=== PATIENT | female | born 1935 | race Caucasian/White ===

== ENCOUNTER 2017-01-02 08:35 | Inpatient (IN) | payer OTHER, MEDICARE ==
[~2017-01-02] VITALS: Ht 165.1 cm; Wt 79.8 kg
[2017-01-02] VITALS (7 sets, daily range): BP systolic 177–211; BP diastolic 62–86; PULSE 65–84; RESP 16–28; TEMP 98.2–98.8; O2SAT 87–93
[~2017-01-02 08:35] MED LIST: 1-ME1LIQ PO; ALLO100T PO; ATOR20TA PO; GLIP5 PO; LANTINJ SQ; LOSA100T3 PO; MAGN400 PO; METO50TA PO; VITD400 PO
[2017-01-02] MEDS ORDERED: GLIP5TAB8 PO (08:54)
[2017-01-02] MEDS ORDERED: LANTUS2P SQ ×2 (08:55)
[2017-01-02] MEDS ORDERED: ATOR20TA15 PO (08:57)
[2017-01-02] MEDS ORDERED: METO100T9 PO (08:57)
[2017-01-02] MEDS ORDERED: AMLO10TA2 PO (08:57)
[2017-01-02] MEDS ORDERED: CLOP75TA PO (09:01)
[2017-01-02] MEDS ORDERED: METH500T PO (09:01)
[2017-01-02] MEDS ORDERED: ESSE250T (09:01)
[2017-01-02] MEDS ORDERED: ALLO100T PO (09:01)
[2017-01-02] MEDS ORDERED: LOSA100T3 PO (09:01)
[2017-01-02] MEDS ORDERED: SODIUM CHLORIDE 0.9% FLUSH 10 ML FLUSH IVF PRN (09:15)
[2017-01-02] MEDS ORDERED: FUROSEMIDE 40 MG/4 ML VIAL IVP ONE (09:15)
--- NOTE | 2017-01-02 09:34 | PD ---
HPI Chief Complaint: Respiratory Distress Time Seen by Provider: 08:59 Travel History International Travel<30 days: No Contact w/Intl Traveler<30days: No Traveled to known affect area: No History of Present Illness HPI The patient is a 81-year-old female who presents to the emergency department for shortness of breath at 3 days' duration. The patient states her symptoms started 3 days ago with mild shortness of breath that was worse with exertion. The patient now has shortness of breath with lying supine, worse at night, slightly alleviated by sleeping on several pillows. The patient also continues to have mild shortness of breath with exertion and a mild lower extremity edema. The patient denies any chest pain, nausea, vomiting, or diaphoresis. The patient does have a history of hypertension and peripheral vascular disease, but denies any known history of CAD or CHF. The patient denies any recent hospitalizations, surgeries except for Mohs surgery, recent prolonged travel, and denies any history of previous pulmonary embolism/DVT. The patient denies any history of COPD/asthma. The patient denies any history of tobacco use. The patient's primary physician is Dr. Duane Mccain. Symptoms are moderate, worse with exertion and lying supine, mildly alleviated at rest and sitting upright. PFSH Past Medical History Hx Anticoagulant Therapy: No Arthritis: Yes Cancer: Yes (SKIN) Cardiovascular Problems: Yes (HTN) High Cholesterol: Yes Chemotherapy: No Cerebrovascular Accident: No Diabetes: Yes (TYPE 2) Patient Takes Glucophage: Yes (GLIPIZIDE ) Diminished Hearing: Yes Endocrine: Yes Glaucoma: Yes Hepatitis: No Hiatal Hernia: No Hypertension: Yes Immune Disorder: No Neurologic: No Psychiatric: No Reproductive: No Respiratory: No Thyroid Disease: No : 4 Para: 4 Past Surgical History Abdominal Surgery: Yes (ULCER REPAIR) Appendectomy: Yes Cardiac Surgery: No Ear Surgery: No Endocrine Surgery: No Eye Surgery: No Genitourinary Surgery: No Gynecologic Surgery: Yes (HYSTERECTOMY) Hysterectomy: Yes Oral Surgery: No Pacemaker: No Thoracic Surgery: No Other Surgery: Yes (STENTS X 2 TO RIGHT LEG) Social History Alcohol Use: Yes (OCCASSIONALLY) Tobacco Use: No Substance Use: No Allergies-Medications (Allergen,Severity, Reaction): Coded Allergies: No Known Allergies (Verified , 01/02/17) Reported Meds & Prescriptions Reported Meds & Active Scripts Active Reported Clopidogrel (Clopidogrel Bisulfate) 75 Mg Tab 75 Mg PO DAILY Magnesium 250 Mg Tab Losartan-Hydrochlorothiazide 100-12.5 Mg Tab 1 Tab PO DAILY Allopurinol 100 Mg Tab 100 Mg PO DAILY Methyldopa 500 Mg Tab 500 Mg PO DAILY Metoprolol Succinate ER 24 HR (Metoprolol Succinate) 100 Mg Tab 100 Mg PO DAILY Amlodipine (Amlodipine Besylate) 10 Mg Tab 10 Mg PO DAILY Atorvastatin (Atorvastatin Calcium) 20 Mg Tab 20 Mg PO HS Lantus Inj (Insulin Glargine) 1,000 Unit/10 Ml Vial 12 Units SQ HS Glipizide 5 Mg Tab 5 Mg PO DAILY Take 30 minutes before a meal Review of Systems Except as stated in HPI: all other systems reviewed are Neg General / Constitutional: No: Fever Cardiovascular: Positive: Dyspnea on exertion, No: Chest Pain or Discomfort, Diaphoresis Respiratory: Positive: Shortness of Breath, No: Cough Gastrointestinal: No: Nausea, Vomiting, Abdominal Pain Musculoskeletal: Positive: Edema Physical Exam Narrative GENERAL: Awake, alert, pleasant 81-year-old female who appears her stated age and is in no acute respiratory distress. SKIN: Focused skin assessment warm/dry. HEAD: Atraumatic. Normocephalic. EYES: Pupils equal and round. No scleral icterus. No injection or drainage. ENT: No nasal bleeding or discharge. Mucous membranes pink and moist. NECK: Trachea midline. No JVD. CARDIOVASCULAR: Regular rate and rhythm. No murmur appreciated. RESPIRATORY: No accessory muscle use. Crackles in the bases bilaterally. GASTROINTESTINAL: Abdomen soft, non-tender, nondistended. No rebound tenderness. MUSCULOSKELETAL: No obvious deformities. No clubbing. No cyanosis. Mild lower extremity pitting edema. NEUROLOGICAL: Awake and alert. No obvious cranial nerve deficits. Motor grossly within normal limits. Normal speech. Nonfocal. PSYCHIATRIC: Appropriate mood and affect; insight and judgment normal. Data Data Last Documented VS Vital Signs Date Time Temp Pulse Resp B/P Pulse Ox O2 Delivery O2 Flow Rate FiO2 01/02/17 09:18 93 Room Air 01/02/17 08:47 78 18 01/02/17 08:44 98.8 197/82 Orders Complete Blood Count With Diff (01/02/17 09:06) Comprehensive Metabolic Panel (01/02/17 09:06) B-Type Natriuretic Peptide (01/02/17 09:06) Act Partial Throm Time (Ptt) (01/02/17 09:06) Prothrombin Time / Inr (Pt) (01/02/17 09:06) Magnesium (Mg) (01/02/17 09:06) Ckmb (Isoenzyme) Profile (01/02/17 09:06) Troponin I (01/02/17 09:06) Iv Access Insert/Monitor (01/02/17 09:06) Electrocardiogram (01/02/17 09:06) Ecg Monitoring (01/02/17 09:06) Oximetry (01/02/17 09:06) Oxygen Administration (01/02/17 09:06) Chest, Single Ap (01/02/17 09:06) Sodium Chloride 0.9% Flush (Ns Flush) (01/02/17 09:15) Furosemide Inj (Lasix Inj) (01/02/17 09:15) Admit Order (Ed Use Only) (01/02/17 10:36) Labs Laboratory Tests Test 01/02/17 09:20 White Blood Count 12.9 TH/MM3 Red Blood Count 3.65 MIL/MM3 Hemoglobin 10.4 GM/DL Hematocrit 30.6 % Mean Corpuscular Volume 83.8 FL Mean Corpuscular Hemoglobin 28.5 PG Mean Corpuscular Hemoglobin 34.0 % Concent Red Cell Distribution Width 13.9 % Platelet Count 206 TH/MM3 Mean Platelet Volume 9.5 FL Neutrophils (%) (Auto) 85.6 % Lymphocytes (%) (Auto) 8.0 % Monocytes (%) (Auto) 5.8 % Eosinophils (%) (Auto) 0.0 % Basophils (%) (Auto) 0.6 % Neutrophils # (Auto) 11.0 TH/MM3 Lymphocytes # (Auto) 1.0 TH/MM3 Monocytes # (Auto) 0.7 TH/MM3 Eosinophils # (Auto) 0.0 TH/MM3 Basophils # (Auto) 0.1 TH/MM3 CBC Comment DIFF FINAL Differential Comment Prothrombin Time 10.2 SEC Prothromb Time International 0.9 RATIO Ratio Activated Partial 27.8 SEC Thromboplast Time Sodium Level 141 MEQ/L Potassium Level 4.2 MEQ/L Chloride Level 109 MEQ/L Carbon Dioxide Level 23.1 MEQ/L Anion Gap 9 MEQ/L Blood Urea Nitrogen 41 MG/DL Creatinine 2.31 MG/DL Estimat Glomerular Filtration 20 ML/MIN Rate Random Glucose 191 MG/DL Calcium Level 8.7 MG/DL Magnesium Level 2.1 MG/DL Total Bilirubin 0.6 MG/DL Aspartate Amino Transf 11 U/L (AST/SGOT) Alanine Aminotransferase 17 U/L (ALT/SGPT) Alkaline Phosphatase 148 U/L Total Creatine Kinase 53 U/L Troponin I 0.02 NG/ML B-Type Natriuretic Peptide 676 PG/ML Total Protein 6.9 GM/DL Albumin 3.1 GM/DL [facility] Medical Decision Making Medical Screen Exam Complete: Yes Emergency Medical Condition: Yes Medical Record Reviewed: Yes Interpretation(s) EKG reveals normal sinus rhythm with a rate of 78. No ischemic changes or ectopy noted. Laboratory Tests Test 01/02/17 09:20 White Blood Count 12.9 TH/MM3 Red Blood Count 3.65 MIL/MM3 Hemoglobin 10.4 GM/DL Hematocrit 30.6 % Mean Corpuscular Volume 83.8 FL Mean Corpuscular Hemoglobin 28.5 PG Mean Corpuscular Hemoglobin 34.0 % Concent Red Cell Distribution Width 13.9 % Platelet Count 206 TH/MM3 Mean Platelet Volume 9.5 FL Neutrophils (%) (Auto) 85.6 % Lymphocytes (%) (Auto) 8.0 % Monocytes (%) (Auto) 5.8 % Eosinophils (%) (Auto) 0.0 % Basophils (%) (Auto) 0.6 % Neutrophils # (Auto) 11.0 TH/MM3 Lymphocytes # (Auto) 1.0 TH/MM3 Monocytes # (Auto) 0.7 TH/MM3 Eosinophils # (Auto) 0.0 TH/MM3 Basophils # (Auto) 0.1 TH/MM3 CBC Comment DIFF FINAL Differential Comment Prothrombin Time 10.2 SEC Prothromb Time International 0.9 RATIO Ratio Activated Partial 27.8 SEC Thromboplast Time Sodium Level 141 MEQ/L Potassium Level 4.2 MEQ/L Chloride Level 109 MEQ/L Carbon Dioxide Level 23.1 MEQ/L Anion Gap 9 MEQ/L Blood Urea Nitrogen 41 MG/DL Creatinine 2.31 MG/DL Estimat Glomerular Filtration 20 ML/MIN Rate Random Glucose 191 MG/DL Calcium Level 8.7 MG/DL Magnesium Level 2.1 MG/DL Total Bilirubin 0.6 MG/DL Aspartate Amino Transf 11 U/L (AST/SGOT) Alanine Aminotransferase 17 U/L (ALT/SGPT) Alkaline Phosphatase 148 U/L Total Creatine Kinase 53 U/L Troponin I 0.02 NG/ML B-Type Natriuretic Peptide 676 PG/ML Total Protein 6.9 GM/DL Albumin 3.1 GM/DL Last Impressions Chest X-Ray 01/02/17 0906 Signed Impressions: Service Date/Time: Monday, January 02, 2017 09:16 - CONCLUSION: Bilateral airspace disease at the bases. Small left effusion. Patrick Connor MD Differential Diagnosis Differential diagnosis includes congestive heart failure, pulmonary edema, acute coronary syndrome, pleural effusion, pulmonary embolism, pneumonia. Narrative Course IV was established, labs are drawn and sent, and the patient was placed on cardiac telemetry monitoring and continuous pulse oximetry monitoring. EKG was ordered and interpreted. Chest x-ray was obtained. The patient was noted to be hypoxic on room air to 87%, came up to 93% on 2 L. The patient was administered Lasix 40 mg intravenously. The patient's chest x-ray does reveal bilateral lower lung lobe pulmonary infiltrates/edema with small effusion. The patient's BNP was elevated greater than 600. The patient's creatinine is elevated creatine 2.3. The patient appears to have new onset congestive heart failure, will be a 23 observation for echocardiogram and diuresis. The patient' s primary physician is Dr. Duane Mccain and the patient has [employer], therefore, [facility] were paged for 23 hour observation. Physician Communication Physician Communication The patient has [employer], therefore, [facility] were paged for admission for new onset congestive heart failure with hypoxia, 87% room air. I discussed the patient with Dr. Gottlieb, who agrees with admission. Diagnosis Primary Impression: Congestive heart failure Qualified Code: I50.9 - Acute congestive heart failure, unspecified congestive heart failure type Additional Impressions: Hypoxia Renal insufficiency Admitting Information Admitting Physician Requests: Admit Condition: Stable Gio Saunders MD Jan 02, 2017 09:34
[2017-01-02 09:46] LABS: BASOPHIL # 0.1 TH/MM3 (0-0.2); BASOPHIL % 0.6 % (0.0-2.0); HEMATOCRIT 30.6 % (35.0-46.0); HEMO FLAGS DIFF FINAL; MEAN CELL VOLUME 83.8 FL (80.0-100.0); MEAN CORPUSCULAR HEMOGLOBIN 28.5 PG (27.0-34.0); MONO % 5.8 % (0.0-8.0); NEUT % 85.6 % (16.0-70.0); PLATELET COUNT 206 TH/MM3 (150-450); RED BLOOD COUNT 3.65 MIL/MM3 (4.00-5.30); RED CELL DISTRIBUTION WIDTH 13.9 % (11.6-17.2); WHITE BLOOD COUNT 12.9 TH/MM3 (4.0-11.0)
--- NOTE | 2017-01-02 09:54 | RADRPT ---
EXAM DATE/TIME: 01/02/2017 09:16 [facility] COMPARISON: CHEST SINGLE AP, June 18, 2015, 10:09. INDICATIONS : Short of breath. MEDICAL HISTORY : None. SURGICAL HISTORY : None. ENCOUNTER: Initial ACUITY: 1 day PAIN SCORE: 0/10 LOCATION: Bilateral chest FINDINGS: Bilateral lower lobe airspace disease greatest in the left lower lobe. Small left effusion. Aortic ca lcification is noted cardiomegaly. Osseous structures are intact. CONCLUSION: Bilateral airspace disease at the bases. Small left effusion. Patrick Connor MD on January 02, 2017 at 9:52 Board Certified Radiologist. This report was verified electronically.
[2017-01-02 09:56] LABS: APTT (PATIENT) 27.8 SEC (24.3-30.1); INTERNATIONAL NORMALIZED RATIO 0.9 RATIO; PROTHROMBIN TIME - PATIENT 10.2 SEC (9.8-11.6)
[2017-01-02 09:58] LABS: ANION GAP 9 MEQ/L (5-15); AST (GOT) 11 U/L (15-37); BICARBONATE 23.1 MEQ/L (21.0-32.0); BLOOD UREA NITROGEN 41 MG/DL (7-18); CHLORIDE 109 MEQ/L (98-107); GLOMERULAR FILTRATION RATE 20 ML/MIN (>89); MAGNESIUM 2.1 MG/DL (1.5-2.5); POTASSIUM 4.2 MEQ/L (3.5-5.1); SODIUM (NA) 141 MEQ/L (136-145)
[2017-01-02 10:03] LABS: ALKALINE PHOSPHATASE 148 U/L (45-117); ALT (GPT) 17 U/L (10-53); TOTAL BILIRUBIN ADULT 0.6 MG/DL (0.2-1.0)
[2017-01-02 10:04] LABS: CREATINE KINASE 53 U/L (26-192)
--- NOTE | 2017-01-02 11:33 | RADRPT ---
EXAM DATE/TIME: 01/02/2017 10:48 [facility] COMPARISON: CT ABDOMEN & PELVIS W/O CONTRAST, May 14, 2014, 16:34. INDICATIONS : Abnormal lab values. MEDICAL HISTORY : Hypercholesterolemia. Diabetes mellitus type 2. Hypertension. Ulcer. Arthritis. Skin cancer. SURGICAL HISTORY : Appendectomy. Hysterectomy. Stents in right leg. ENCOUNTER: Initial ACUITY: 1 day PAIN SCORE: 2/10 LOCATION: Bilateral flank MEASUREMENTS: RIGHT KIDNEY: 8.8 x 4.8 x 4.7 cm LEFT KIDNEY: 10.8 x 5.2 x 4.9 cm FINDINGS: RIGHT KIDNEY: Mild diffuse increase in renal cortical echogenicity. Mild atrophy and renal cortical thinning. No ev idence of hydronephrosis. LEFT KIDNEY: Mild diffuse increase in renal cortical echogenicity. Mild cortical thinning. No evidence of hydronep hrosis. BLADDER: Within normal limits given the degree of distension. CONCLUSION: Increased renal cortical echogenicity and cortical thinning consistent with medical renal disease. No hydronephrosis. Maurilio Pedro MD on January 02, 2017 at 11:29 Board Certified Radiologist. This report was verified electronically.
[2017-01-02] MEDS ORDERED: METHYLDOPA 500 MG TAB PO SCH (12:45)
--- NOTE | 2017-01-02 12:58 | HHI.HP ---
[facility] Service [facility] Primary Care Physician Duane Mccain MD Admission Diagnosis new onset congestive heart failure, hypoxia, chronic renal insuffici Diagnoses: (1) Congestive heart failure Diagnosis: Principal (2) Renal insufficiency Diagnosis: Secondary Chief Complaint: Shortness Of breath Travel History International Travel<30 Days: No Contact w/Intl Traveler <30 Da: No Traveled to Known Affected Are: No History of Present Illness Patient is a very pleasant 81-year-old female baseline is hard of hearing with history of hypertension, chronic kidney insufficiency, peripheral vascular disease came to emergency room complaining of shortness of breath that started 3 days ago. This was associated with leg swelling and orthopnea. Per daughter- in-law initially shortness of breath with exertion but last evening even while at rest and sat up all night and was unable to sleep/lay down down flat. Denies any fever or chest pains URI symptoms. On evaluation the ER with uncontrolled hypertension. Per [id number] her blood pressures was difficult to control. Methyldopa was recently added to anti hypertensive regimen as OP. Patient states compliance with medications. patient admitted for further evaluation and management. Review of Systems Constitutional: DENIES: Diaphoretic episodes, Fatigue, Fever, Weight gain, Weight loss, Chills, Dizziness, Change in appetite, Night Sweats Endocrine: DENIES: Abnorml menstrual pattern, Heat/cold intolerance, Polydipsia , Polyuria, Polyphagia Eyes: DENIES: Blurred vision, Diplopia, Eye inflammation, Eye pain, Vision loss , Photosensitivity, Double Vision Ears, nose, mouth, throat: DENIES: Tinnitus, Hearing loss, Vertigo, Nasal discharge, Oral lesions, Throat pain, Hoarseness, Ear Pain, Running Nose, Epistaxis, Sinus Pain, Toothache, Odynophagia Respiratory: COMPLAINS OF: Shortness of breath Cardiovascular: DENIES: Chest pain, Palpitations, Syncope, Dyspnea on Exertion , PND, Lower Extremity Edema, Orthopnea, Claudication Gastrointestinal: DENIES: Abdominal pain, Black stools, Bloody stools, Constipation, Diarrhea, Nausea, Vomiting, Difficulty Swallowing, Anorexia Genitourinary: DENIES: Abnormal vaginal bleeding, Dysmenorrhea, Dyspareunia, Sexual dysfunction, Urinary frequency, Urinary incontinence, Urgency, Hematuria , Dysuria, Nocturia, Vaginal discharge Musculoskeletal: DENIES: Joint pain, Muscle aches, Stiffness, Joint Swelling, Back pain, Neck pain Integumentary: DENIES: Abnormal pigmentation, Pruritus, Rash, Nail changes, Breast masses, Breast skin changes, Nipple discharge Hematologic/lymphatic: DENIES: Bruising, Lymphadenopathy Immunologic/allergic: DENIES: Eczema, Urticaria Neurologic: DENIES: Abnormal gait, Headache, Localized weakness, Paresthesias, Seizures, Speech Problems, Tremor, Poor Balance Psychiatric: DENIES: Anxiety, Confusion, Mood changes, Depression, Hallucinations, Agitation, Suicidal Ideation, Homicidal Ideation, Delusions Past Family Social History Past Medical History Peripheral vascular disease status post stent was or the left lower extremity initially was on anticoagulation with Plavix and now switched to baby aspirin Diabetes type 2 Glaucoma Hypertension Hyperlipidemia Past Surgical History Hysterectomy with bilateral salpingo-oophorectomy Appendectomy Cataract surgery Skin cancer surgery Stent placement in the right lower extremity in 2013 Reported Medications Losartan/hydrochlorothiazide 100 mg/12.5 mg daily Allopurinol 100 mg half tab 3 times a week Metoprolol 100 mg twice a Methyldopa 500 mg daily Amlodipine 10 mg daily 8 atorvastatin 20 mg at bedtime Lantus 12 units at bedtime Menisci to 50 mg daily Baby aspirin daily Glipizide 5 mg daily Insulins 12 units at bedtime Vitamin D Magnesium 250 mg daily Baby aspirin Allergies: Coded Allergies: No Known Allergies (Verified , 01/02/17) Family History Noncontributory Social History Nonsmoker Very occasional beer No history of substance abuse Physical Exam Vital Signs Vital Signs Date Time Temp Pulse Resp B/P Pulse Ox O2 Delivery O2 Flow Rate FiO2 01/02/17 11:44 68 24 207/83 93 Nasal Cannula 2 01/02/17 09:18 93 Room Air 01/02/17 09:18 93 Room Air 01/02/17 08:47 78 18 01/02/17 08:44 98.8 81 18 197/82 93 01/02/17 08:36 98.8 84 28 177/77 87 Room Air Physical Exam GENERAL: This is a well-nourished, well-developed patient, SKIN: No rashes, ecchymoses or lesions. Cool and dry. HEAD: Atraumatic. Normocephalic. No temporal or scalp tenderness. EYES: Pupils equal round and reactive. Extraocular motions intact. No scleral icterus. No injection or drainage. ENT: Nose without bleeding, purulent drainage or septal hematoma. Throat without erythema, Uvula midline. Airway patent. NECK: Trachea midline. No JVD or lymphadenopathy. Supple, nontender, no meningeal signs. CARDIOVASCULAR: Regular rate and rhythm without murmurs, gallops, or rubs. RESPIRATORY: Clear to auscultation. Breath sounds equal bilaterally. No wheezes , minimal bibasal Rales GASTROINTESTINAL: Abdomen soft, non-tender, nondistended. No hepato-splenomegaly , or palpable masses. No guarding. MUSCULOSKELETAL: Extremities without clubbing, cyanosis, +1 lower extremity edema. No joint tenderness, effusion, or edema noted. No calf tenderness. Negative Homans sign bilaterally. NEUROLOGICAL: Awake and alert. Cranial nerves II through XII intact. Motor and sensory grossly within normal limits. Five out of 5 muscle strength in all muscle groups. Normal speech. Laboratory Laboratory Tests Test 01/02/17 09:20 White Blood Count 12.9 Red Blood Count 3.65 Hemoglobin 10.4 Hematocrit 30.6 Mean Corpuscular Volume 83.8 Mean Corpuscular Hemoglobin 28.5 Mean Corpuscular Hemoglobin 34.0 Concent Red Cell Distribution Width 13.9 Platelet Count 206 Mean Platelet Volume 9.5 Neutrophils (%) (Auto) 85.6 Lymphocytes (%) (Auto) 8.0 Monocytes (%) (Auto) 5.8 Eosinophils (%) (Auto) 0.0 Basophils (%) (Auto) 0.6 Neutrophils # (Auto) 11.0 Lymphocytes # (Auto) 1.0 Monocytes # (Auto) 0.7 Eosinophils # (Auto) 0.0 Basophils # (Auto) 0.1 CBC Comment DIFF FINAL Differential Comment Prothrombin Time 10.2 Prothromb Time International 0.9 Ratio Activated Partial 27.8 Thromboplast Time Sodium Level 141 Potassium Level 4.2 Chloride Level 109 Carbon Dioxide Level 23.1 Anion Gap 9 Blood Urea Nitrogen 41 Creatinine 2.31 Estimat Glomerular Filtration 20 Rate Random Glucose 191 Calcium Level 8.7 Magnesium Level 2.1 Total Bilirubin 0.6 Aspartate Amino Transf 11 (AST/SGOT) Alanine Aminotransferase 17 (ALT/SGPT) Alkaline Phosphatase 148 Total Creatine Kinase 53 Troponin I 0.02 B-Type Natriuretic Peptide 676 Total Protein 6.9 Albumin 3.1 Result Diagram: 01/02/1791901/02/17919 Imaging Last Impressions Chest X-Ray 01/02/17905 Signed Impressions: Service Date/Time: Monday, January 02, 2017 09:16 - CONCLUSION: Bilateral airspace disease at the bases. Small left effusion. Patrick Connor MD Renal Ultrasound 01/02/17 0000 Signed Impressions: Service Date/Time: Monday, January 02, 2017 10:48 - CONCLUSION: Increased renal cortical echogenicity and cortical thinning consistent with medical renal disease. No hydronephrosis. Maurilio Pedro MD Assessment and Plan Assessment and Plan 81-year-old female presenting with 3 days acute shortness of breath worsening with exertion Hypertensive urgency presenting with acute shortness of breath - Acute Respiratory Failure secondary to New onset congestive heart failure with hypoxemia 02 supplement-02 LNC Restart her medications Lopressor 100 mg twice a day Losartan 100 mg daily/hydrochlorothiazide 12.5 mg daily. Amlodipine 10 mg daily Lasix 20 mg IV bid To start clonidine 0.1 mg tid and every 6 when necessary with blood pressures 160/90. DC Methyldopa Check a 2-D echo to check for ejection fraction systolic versus diastolic failure Will need to rule out ischemia as etiology of new onset heart failure since patient with peripheral vascular disease 12-lead EKG unremarkable no acute ST-T wave changes Check troponin. x 3 If negative will order for myocardial perfusion study. Continue aspirin Diabetes type 2 check hemoglobin A1c Patient states good hypoglycemic awareness We'll check blood sugars 2 times a day and at bedtime with sliding scale monitoring We'll discontinue oral hypoglycemic with worsening renal function. Hold long-acting insulin. 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 Landeros as an outpatient. Ultrasound shows kidneys bilaterally suggestive of medical disease We don't have an outpatient lab for comparison.- PCP's office close Follow basic metabolic panel with diuretics IV Consult her digester cook- Dr. Landeros Start patient on Lovenox for DVT prophylaxis Discussed Condition With Patient and [id number] at bedside Physician Certification 2 Midnight Certification Type: Admission for Inpatient Services Order for Inpatient Services The services are ordered in accordance with Medicare regulations or non- Medicare payer requirements, as applicable. In the case of services not specified as inpatient-only, they are appropriately provided as inpatient services in accordance with the 2-midnight benchmark. Estimated LOS (days): 3 days is the estimated time the patient will need to remain in the hospital, assuming treatment plan goals are met and no additional complications. Post-Hospital Plan: Home Problem Qualifiers (1) Congestive heart failure: Qualified Code: I50.9 - Acute congestive heart failure, unspecified congestive heart failure type Teena Gottlieb MD Jan 02, 2017 12:58 Teena Gottlieb MD Jan 02, 2017 12:58
[2017-01-02] MEDS ORDERED: GLUCAGON 1 MG/ML VIAL OTHER PRN (13:30)
[2017-01-02] MEDS ORDERED: cloNIDine HCL 0.1 MG TAB PO PRN (13:30)
[2017-01-02] MEDS ORDERED: DEXTROSE 50% IN WATER 50 ML VIAL(D50) IV PUSH PRN (13:30)
[2017-01-02] MEDS: METOPROLOL TARTRATE 100 MG TAB PO SCH ×2 (13:41→20:36)
[2017-01-02] MEDS: ENOXAPARIN SODIUM 30 MG/0.3 ML SYRINGE SQ SCH (14:00)
--- NOTE | 2017-01-02 14:53 | EC ---
Study Study Date:01/02/2017 STUDY CONCLUSIONS SUMMARY - Procedure narrative: Transthoracic echocardiography. Image quality was fair. Scanning was performed from the parasternal, apical, and subcostal acoustic windows. - Left ventricle: The cavity size was normal. Wall thickness was normal. Systolic function was normal. The estimated ejection fraction was in the range of 55% to 60%. Although no diagnostic regional wall motion abnormality was identified, this possibility cannot be completely excluded on the basis of this study. - Mitral valve: Mild regurgitation. If LV function is below 40, please consider prescribing an ACEI or ARB or document rationale for non-use. PROCEDURE DATA STUDY STATUS: Elective. Procedure: Transthoracic echocardiography. Image quality was fair. Scanning was performed from the parasternal, apical, and subcostal acoustic windows. Study completion: The patient tolerated the procedure well. Transthoracic echocardiography. M-mode, complete 2D, complete spectral Doppler, and color Doppler. Patient status: Inpatient. CARDIAC ANATOMY LEFT VENTRICLE: The cavity size was normal. Wall thickness was normal. Systolic function was normal. The estimated ejection fraction was in the range of 55% to 60%. Although no diagnostic regional wall motion abnormality was identified, this possibility cannot be completely excluded on the basis of this study. AORTIC VALVE: Trileaflet; normal thickness leaflets. Doppler: Transvalvular velocity was within the normal range. There was no stenosis. No regurgitation. AORTA: Aortic root: The aortic root was normal in size. MITRAL VALVE: Structurally normal valve. Doppler: Transvalvular velocity was within the normal range. There was no evidence for stenosis. Mild regurgitation. Mean gradient: 3mm Hg (D). Peak gradient: 7mm Hg (D). LEFT ATRIUM: The atrium was normal in size. RIGHT VENTRICLE: The cavity size was normal. Wall thickness was normal. PULMONIC VALVE: Doppler: Transvalvular velocity was within the normal range. There was no evidence for stenosis. No regurgitation. TRICUSPID VALVE: Structurally normal valve. Doppler: Transvalvular velocity was within the normal range. No regurgitation. PULMONARY ARTERY: The main pulmonary artery was normal-sized. Systolic pressure was within the normal range. RIGHT ATRIUM: The atrium was normal in size. PERICARDIUM: There was no pericardial effusion. SYSTEMIC VEINS: Inferior vena cava: The vessel was normal in size. BASIC MEASUREMENTS ADULT Normal Left ventricle LV internal dimension, ED, chordal level, *40.2 mm 43-52 PLAX LV internal dimension, ES, chordal level, 31.3 mm 23-38 PLAX Fractional shortening, chordal level, PLAX *22 % >29 LV posterior wall thickness, ED 8.08 mm IVS/LVPW ratio, ED 1.08 <1.3 Ventricular septum Septal thickness, ED 8.7 mm Aortic valve Leaflet separation 21 mm 15-26 Left atrium Anterior-posterior dimension 35 mm Right ventricle RV internal dimension, ED, PLAX *18.2 mm 19-38 BASIC MEASUREMENTS ADULT Normal Aortic valve Leaflet separation 21 mm 15-26 Aorta Root diameter, ED 27 mm 20-37 DOPPLER MEASUREMENTS ADULT Normal Main pulmonary artery Pressure, S 23 mm Hg =30 Aortic valve VTI, S 43.5 cm Mitral valve Peak E-wave velocity 80.6 cm/s Peak A-wave velocity 113 cm/s Mean velocity, D 81.2 cm/s Mean gradient, D 3 mm Hg Peak gradient, D 7 mm Hg Peak E/A ratio 0.7 Tricuspid valve Regurgitant peak velocity 214 cm/s Peak RV-RA gradient, S 18 mm Hg Maximal regurgitant velocity 214 cm/s Systemic veins Estimated CVP 5 mm Hg Right ventricle RV pressure, S 23 mm Hg <30 LEGEND: Mean values are shown as u=mean value. Asterisk (*) espinoza values outside specified normal range. Prepared and signed by Christiano Ibrahim [id number]
[2017-01-02] MEDS: INSULIN NovoLIN REGULAR SUPPLEMENTAL SCALE SQ SCH ×2 (16:00→20:37)
[2017-01-02] MEDS: FUROSEMIDE 20 MG/2 ML VIAL IV PUSH SCH (18:54)
[2017-01-02] MEDS: ATORVASTATIN 20 MG TAB PO SCH (20:36)
[2017-01-02] MEDS: cloNIDine HCL 0.1 MG TAB PO SCH (22:49)
[2017-01-03] VITALS (7 sets, daily range): BP systolic 142–210; BP diastolic 64–81; PULSE 73–86; RESP 14–20; TEMP 97.7–98.9; O2SAT 91–94
[2017-01-03] MEDS: cloNIDine HCL 0.1 MG TAB PO SCH ×3 (05:19→20:43)
[2017-01-03] MEDS: INSULIN NovoLIN REGULAR SUPPLEMENTAL SCALE SQ SCH ×4 (05:20→20:45)
[2017-01-03] MEDS: LOSARTAN 50 MG TAB PO SCH (08:50)
[2017-01-03] MEDS: HYDROCHLOROTHIAZIDE 12.5 MG CAP PO SCH (08:51)
[2017-01-03] MEDS: ASPIRIN 81 MG CHEW TAB CHEW SCH (08:51)
[2017-01-03] MEDS: FUROSEMIDE 20 MG/2 ML VIAL IV PUSH SCH ×2 (08:51→17:38)
[2017-01-03] MEDS: METOPROLOL TARTRATE 100 MG TAB PO SCH ×2 (08:51→20:43)
[2017-01-03] MEDS ORDERED: CLOPIDOGREL 75 MG TAB PO SCH (09:00)
[2017-01-03 10:59] LABS: HEMOGLOBIN A1a 0.9 %; HEMOGLOBIN A1b 2.1 %; HEMOGLOBIN Ao 82.2 %; HEMOGLOBIN LA1C 2.6 %; HEMOGLOBIN P3 6.3 %
[2017-01-03 11:22] LABS: BICARBONATE 25.1 MEQ/L (21.0-32.0); POTASSIUM 3.8 MEQ/L (3.5-5.1)
[2017-01-03] MEDS ORDERED: REGADENOSON INJ 0.4 MG/5 ML SYR ONE (13:33)
--- NOTE | 2017-01-03 14:01 | EKG ---
Date Performed: 01/02/2017 Time Performed: 21:43:34 PTAGE: 81 years EKG: Sinus rhythm NONSPECIFIC T-WAVE ABNORMALITY Compared to previous tracing, the minor ST-T changes are new. BORDERL INE ECG PREVIOUS TRACING : 01/02/2017 09.15 DOCTOR: Martín Cotton Interpretating Date/Time 01/03/2017 14:00:47
--- NOTE | 2017-01-03 14:01 | EKG ---
Date Performed: 01/02/2017 Time Performed: 09:15:49 PTAGE: 81 years EKG: Sinus rhythm Compared to previous tracing, heart rate is now normal and PVCs no longer present. ST-T changes hav e improved. NORMAL ECG PREVIOUS TRACING : 06/18/2015 09.48 DOCTOR: Martín Cotton Interpretating Date/Time 01/03/2017 14:00:16
--- NOTE | 2017-01-03 14:59 | HHI.PR ---
Subjective Remarks had a good night, no chest pains or shortness of breath stress test ongoing Objective Vitals Vital Signs Date Time Temp Pulse Resp B/P Pulse Ox O2 Delivery O2 Flow Rate FiO2 01/03/17 08:12 84 01/03/17 08:00 Nasal Cannula 2.00 01/03/17 08:00 98.9 83 20 168/79 94 01/03/17 04:00 98.9 82 18 142/76 91 01/03/17 00:00 98.9 73 14 142/64 92 01/02/17 20:00 98.8 78 16 180/62 92 01/02/17 17:00 Nasal Cannula 2.00 01/02/17 15:00 98.2 65 20 182/78 93 I/O 01/02/17 01/02/17 01/02/17 01/03/17 01/03/17 01/03/17 07:00 15:00 23:00 07:00 15:00 23:00 Intake Total 240 ml 0 ml Balance 240 ml 0 ml Intake Oral 240 ml 0 ml # Voids 1 3 # Bowel Movements 0 0 Result Diagram: 01/02/17 0920 01/03/17 1015 Imaging Last Impressions Chest X-Ray 01/02/17 0906 Signed Impressions: Service Date/Time: Monday, January 02, 2017 09:16 - CONCLUSION: Bilateral airspace disease at the bases. Small left effusion. Patrick Connor MD Renal Ultrasound 01/02/17 0000 Signed Impressions: Service Date/Time: Monday, January 02, 2017 10:48 - CONCLUSION: Increased renal cortical echogenicity and cortical thinning consistent with medical renal disease. No hydronephrosis. Maurilio Pedro MD Objective Remarks awake and alert no wheezes, or rales regular rhythm abdomen soft, good bowel sounds extremities - decrease leg swelling neuro exam- unremarkable A/P Problem List: (1) Congestive heart failure ICD Code: I50.9 Status: Acute (2) Renal insufficiency ICD Code: N28.9 Status: Acute Assessment and Plan 81-year-old female presenting with 3 days acute shortness of breath worsening with exertion Hypertensive urgency presenting with acute shortness of breath - BP improved Acute Respiratory Failure secondary to New onset congestive heart failure with hypoxemia Acute diastolic heart failure- EF 55-60% r/o ischemia as etio- Lexiscan in progress troponin negative x 3 02 supplement-02 LNC Lopressor 100 mg twice a day Losartan 100 mg daily/hydrochlorothiazide 12.5 mg daily. Amlodipine 10 mg daily Lasix 20 mg IV bid clonidine 0.1 mg tid - continue to adjust regimen 12-lead EKG unremarkable no acute ST-T wave changes Continue aspirin Diabetes type 2 - uncontrolled- A1C 6.7 Patient states good hypoglycemic awareness We'll check blood sugars 2 times a day and at bedtime with sliding scale monitoring We'll discontinue oral hypoglycemic with worsening renal function. Hold long-acting insulin. 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 Landeros as an outpatient. Ultrasound shows kidneys bilaterally suggestive of medical disease We don't have an outpatient lab for comparison.- PCP's office close Follow basic metabolic panel with diuretics IV Consult her pulping machine operator- Dr. Leti Karimi for DVT prophylaxis Problem Qualifiers (1) Congestive heart failure: Qualified Code: I50.9 - Acute congestive heart failure, unspecified congestive heart failure type Teena Gottlieb MD Jan 03, 2017 14:59
--- NOTE | 2017-01-03 16:35 | RADRPT ---
EXAM DATE/TIME: 01/03/2017 13:25 [facility] COMPARISON: No previous studies available for comparison. INDICATIONS : Dyspnea on exertion. Coronary atherosclerosis. Congestive heart failure. DOSE: 27.2 mCi Tc99m Myoview at stress. 8.2 mCi Tc99m Myoview at rest. 0.4 mg Lexiscan STRESS SYMPTOMS: Stomach pain and dyspnea. EJECTION FRACTION: 60% MEDICAL HISTORY : Renal insufficiency, chrnoic. Hypertension. Diabetes mellitus type 2. CHF. SURGICAL HISTORY : Hysterectomy. Appendectomy. ENCOUNTER: Initial ACUITY: 1 day PAIN SCALE: 0/10 LOCATION: chest TECHNIQUE: The patient underwent pharmacologic stress with infusion of prescribed dose. Continuous ECG tracing was monitored during stress. Gated SPECT imaging was performed after stress and conventional SPECT i maging was performed at rest. The examination was performed on a SPECT/CT scanner, both attenuation and non-corrected datasets were reviewed. FINDINGS: DISTRIBUTION: The maximum perfused segment at stress is in the anterolateral wall. PERFUSION STUDY: The pattern of perfusion at stress is within normal limits. GATED STUDY: There is intact wall motion and thickening without hypokinetic or dyskinetic segments. CONCLUSION: 1. No significant reversibility to suggest ischemia. 2. Normal wall motion with ejection fraction 60%. RISK CATEGORY: Low (<1% Annual Mortality Rate) Lucio nAne MD on January 03, 2017 at 16:33 Board Certified Radiologist. This report was verified electronically.
--- NOTE | 2017-01-03 17:36 | PD.CONS ---
HPI Service Nephrology Consult Requested By Dr. Gottlieb Reason for Consult Chronic kidney disease Primary Care Physician Duane Mccain MD History of Present Illness Patient is a 81-year-old female with history of diabetes, chronic kidney disease stage IV, GFR was 29 she visited in the office, she now is admitted with increasing shortness of breath and peripheral edema she also given diuretics had a good response creatinine declined as well she is waiting for stress test to be completed. Review of Systems Constitutional: COMPLAINS OF: Fatigue Respiratory: COMPLAINS OF: Shortness of breath Cardiovascular: COMPLAINS OF: Dyspnea on Exertion, Lower Extremity Edema Past Family Social History Allergies: Coded Allergies: No Known Allergies (Verified , 01/02/17) Past Medical History Diabetes Chronic kidney disease Hypertension Peripheral edema Peripheral vascular disease Hyperlipidemia GERD Past Surgical History A abdominal surgery for gastric ulcer repair Hysterectomy Cataract Reported Medications Reported Meds & Active Scripts Active Reported Magnesium 250 Mg Tab Losartan-Hydrochlorothiazide 100-12.5 Mg Tab 1 Tab PO DAILY Allopurinol 100 Mg Tab 100 Mg PO DAILY Methyldopa 500 Mg Tab 500 Mg PO DAILY Amlodipine (Amlodipine Besylate) 10 Mg Tab 10 Mg PO DAILY Atorvastatin (Atorvastatin Calcium) 20 Mg Tab 20 Mg PO HS Lantus Inj (Insulin Glargine) 1,000 Unit/10 Ml Vial 12 Units SQ HS Glipizide 5 Mg Tab 5 Mg PO DAILY Take 30 minutes before a meal Active Ordered Medications Current Medications Medications (Trade) Dose Ordered Sig/Shannan Route Start Time Stop Time Status Last Admin (NS Flush) 2 ml UNSCH PRN IVF 01/02/17 09:15 (Norvasc) 10 mg DAILY PO 01/02/17 12:45 01/03/17 08:50 (Lipitor) 20 mg HS PO 01/02/17 21:00 01/02/17 20:36 (Cozaar) 100 mg DAILY PO 01/03/17 09:00 01/03/17 08:50 (Microzide) 12.5 mg DAILY PO 01/03/17 09:00 01/03/17 08:51 (Lopressor) 100 mg Q12HR PO 01/02/17 13:00 01/03/17 08:51 (Lasix Inj) 20 mg BID@09,18 IV PUSH 01/02/17 18:00 01/03/17 08:51 (Catapres) 0.1 mg Q6H PRN PO 01/02/17 13:30 01/02/17 13:41 (D50w (Vial) Inj) 25 ml UNSCH PRN IV PUSH 01/02/17 13:30 (Glucagon Inj) 1 mg UNSCH PRN OTHER 01/02/17 13:30 (Aspirin Chew) 81 mg DAILY CHEW 01/03/17 09:00 01/03/17 08:51 (Lovenox Inj) 30 mg Q24H SQ 01/02/17 14:00 (Catapres) 0.1 mg Q8HR PO 01/02/17 22:00 01/02/17 22:49 Family History Noncontributory Social History Denies smoking drinks socially Physical Exam Vital Signs Vital Signs Date Time Temp Pulse Resp B/P Pulse Ox O2 Delivery O2 Flow Rate FiO2 01/03/17 12:00 97.7 79 20 174/80 92 01/03/17 08:12 84 01/03/17 08:00 Nasal Cannula 2.00 01/03/17 08:00 98.9 83 20 168/79 94 01/03/17 04:00 98.9 82 18 142/76 91 01/03/17 00:00 98.9 73 14 142/64 92 01/02/17 20:00 98.8 78 16 180/62 92 Physical Exam GENERAL: Well-nourished, well-developed patient. SKIN: Warm and dry. HEAD: Normocephalic. EYES: No scleral icterus. No injection or drainage. NECK: Supple, trachea midline. No JVD or lymphadenopathy. CARDIOVASCULAR: Regular rate and rhythm without murmurs, gallops, or rubs. RESPIRATORY: Breath sounds equal bilaterally. No accessory muscle use. GASTROINTESTINAL: Abdomen soft, non-tender, nondistended. EXTREMITIES: No cyanosis, mild edema. NEUROLOGICAL: Awake, alert, and oriented x 3. Non-focal. Laboratory Laboratory Tests Test 01/02/17 01/03/17 21:58 10:15 Troponin I 0.03 Sodium Level 142 Potassium Level 3.8 Chloride Level 108 Carbon Dioxide Level 25.1 Anion Gap 9 Blood Urea Nitrogen 39 Creatinine 2.11 Estimat Glomerular Filtration 22 Rate Random Glucose 125 Calcium Level 8.4 Result Diagram: 01/02/17 0920 01/03/17 1015 Imaging Last Impressions Myocardial Perfusion Scan Nuc Med 01/03/17 0000 Signed Impressions: Service Date/Time: Tuesday, January 03, 2017 13:25 - CONCLUSION: 1. No significant reversibility to suggest ischemia. 2. Normal wall motion with ejection fraction 60%%. RISK CATEGORY: Low (<1%% Annual Mortality Rate) Lucio Anne MD Chest X-Ray 01/02/17 0906 Signed Impressions: Service Date/Time: Monday, January 02, 2017 09:16 - CONCLUSION: Bilateral airspace disease at the bases. Small left effusion. Patrick Connor MD Renal Ultrasound 01/02/17 0000 Signed Impressions: Service Date/Time: Monday, January 02, 2017 10:48 - CONCLUSION: Increased renal cortical echogenicity and cortical thinning consistent with medical renal disease. No hydronephrosis. Maurilio Pedro MD Assessment and Plan Problem List: (1) CKD (chronic kidney disease) stage 4, GFR 15-29 ml/min Plan: Patient appears to have worsening renal failure due to diastolic dysfunction of the heart and a buildup of the fluid responded to Lasix, perfusion is improved and creatinine is declining I agree with the Lasix her blood pressure needs to be better controlled I agree ARB and I will add hydralazine (2) CHF (congestive heart failure) Plan: She has diastolic dysfunction due to uncontrolled hypertension (3) Diabetes mellitus Plan: Continue to monitor blood glucose (4) Anemia Plan: Moderate anemia due to CK D (5) Uncontrolled hypertension Plan: Add hydralazine 25 mg 3 times a day Problem Qualifiers (1) CHF (congestive heart failure): Xiao Landeros MD Jan 03, 2017 17:36
[2017-01-03] MEDS: ENOXAPARIN SODIUM 30 MG/0.3 ML SYRINGE SQ SCH (17:41)
[2017-01-03] MEDS: hydrALAZINE HCL 25 MG TAB PO SCH ×2 (19:28→22:00)
[2017-01-03] MEDS: ATORVASTATIN 20 MG TAB PO SCH (20:43)
[2017-01-04] VITALS: BP_SYST 190; BP_SYST 200; BP_DIAS 70; BP_DIAS 85; PULSE 87; RESP 16; TEMP 98.2; O2SAT 94
[2017-01-04 04:00] VITALS: BP_SYST 205; BP_SYST 220; BP_DIAS 80; BP_DIAS 93; PULSE 85; RESP 16; TEMP 98.4; O2SAT 94
[2017-01-04] MEDS: hydrALAZINE HCL 25 MG TAB PO SCH (05:07)
[2017-01-04] MEDS: cloNIDine HCL 0.1 MG TAB PO SCH (05:07)
[2017-01-04] MEDS: INSULIN NovoLIN REGULAR SUPPLEMENTAL SCALE SQ SCH ×2 (06:06→11:00)
[2017-01-04 08:08] VITALS: BP 214/89; PULSE 89; RESP 18; TEMP 98.3; O2SAT 95
[2017-01-04] MEDS ORDERED: cloNIDine HCL 0.1 MG TAB PO SCH (08:15)
[2017-01-04] MEDS: ASPIRIN 81 MG CHEW TAB CHEW SCH (09:04)
[2017-01-04] MEDS: FUROSEMIDE 20 MG/2 ML VIAL IV PUSH SCH (09:05)
[2017-01-04] MEDS: METOPROLOL TARTRATE 100 MG TAB PO SCH (09:05)
[2017-01-04] MEDS: HYDROCHLOROTHIAZIDE 12.5 MG CAP PO SCH (09:05)
[2017-01-04] MEDS: LOSARTAN 50 MG TAB PO SCH (09:06)
[2017-01-04 12:00] VITALS: BP 185/70; PULSE 70; RESP 18; TEMP 97.7; O2SAT 96
--- NOTE | 2017-01-04 13:05 | HHI.PR ---
Subjective Remarks feeling much better, no headache, no shortness of breath, no leg swelling up and ambulating no shortness of breath BP 190/70 Objective Vitals Vital Signs Date Time Temp Pulse Resp B/P Pulse Ox O2 Delivery O2 Flow Rate FiO2 01/04/17 08:08 98.3 89 18 214/89 95 01/04/17 04:00 98.4 85 16 220/93 94 205/80 01/04/17 00:00 98.2 87 16 200/85 94 190/70 01/03/17 20:00 Room Air 01/03/17 20:00 81 01/03/17 20:00 98.7 86 18 210/81 94 01/03/17 18:00 97.8 77 20 178/70 93 I/O 01/03/17 01/03/17 01/03/17 01/04/17 01/04/17 01/04/17 07:00 15:00 23:00 07:00 15:00 23:00 Intake Total 0 ml 320 ml 90 ml Balance 0 ml 320 ml 90 ml Intake Oral 0 ml 320 ml 90 ml # Voids 3 5 1 5 # Bowel Movements 0 0 Result Diagram: 01/02/17 0920 01/03/17 1015 Imaging Last Impressions Myocardial Perfusion Scan Nuc Med 01/03/17 0000 Signed Impressions: Service Date/Time: Tuesday, January 03, 2017 13:25 - CONCLUSION: 1. No significant reversibility to suggest ischemia. 2. Normal wall motion with ejection fraction 60%%. RISK CATEGORY: Low (<1%% Annual Mortality Rate) Lucio Anne MD Chest X-Ray 01/02/17 0906 Signed Impressions: Service Date/Time: Monday, January 02, 2017 09:16 - CONCLUSION: Bilateral airspace disease at the bases. Small left effusion. Patrick Connor MD Renal Ultrasound 01/02/17 0000 Signed Impressions: Service Date/Time: Monday, January 02, 2017 10:48 - CONCLUSION: Increased renal cortical echogenicity and cortical thinning consistent with medical renal disease. No hydronephrosis. Maurilio Pedro MD Objective Remarks awake and alert no wheezes, or rales regular rhythm abdomen soft, good bowel sounds extremities - no edema neuro exam- unremarkable A/P Problem List: (1) Congestive heart failure ICD Code: I50.9 Status: Acute (2) Renal insufficiency ICD Code: N28.9 Status: Acute Assessment and Plan 81-year-old female presenting with 3 days acute shortness of breath worsening with exertion Hypertensive urgency presenting with acute shortness of breath- presenting acute CHF- still with elevated systolibc BP readings d/w patient and daughter who is a nurse- goals and compliance Acute Respiratory Failure -resolved- sats improved- room air Acute congestive -diastolic heart failure- EF 55-60% secondary to uncontrolled hypertension troponin negative x 3- Lexiscan negative- no ischemia Lopressor 100 mg twice a day - home meds Losartan 100 mg daily/hydrochlorothiazide 12.5 mg daily. Amlodipine 10 mg daily Lasix 20 mg po bid clonidine 0.2 mg tid - continue to adjust regimen 12-lead EKG unremarkable no acute ST-T wave changes Continue aspirin Diabetes type 2 - uncontrolled- A1C 6.7 Patient states good hypoglycemic awareness We'll check blood sugars 2 times a day and at bedtime with sliding scale monitoring We'll discontinue oral hypoglycemic with worsening renal function. 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 Landeros as an outpatient. Ultrasound shows kidneys bilaterally suggestive of medical disease OP ff up with Dr. Landeros and PCP - Dr. Latisha Rivas d/w them goals- DC home today Problem Qualifiers (1) Congestive heart failure: Qualified Code: I50.9 - Acute congestive heart failure, unspecified congestive heart failure type Teena Gottlieb MD Jan 04, 2017 13:05
[2017-01-04] MEDS ORDERED: METO-338 PO (13:10)
[2017-01-04] MEDS ORDERED: CLON.1 PO (13:10)
[2017-01-04] MEDS ORDERED: HYDR25TA35 PO (13:10)
[2017-01-04] MEDS ORDERED: FURO1TAB62 PO (13:11)
[2017-01-04] MEDS ORDERED: Aspirin Chew CHEW (13:24)
--- NOTE | 2017-01-04 14:16 | HHI.NPPN ---
Subjective History of Present Illness 81 year old with CHF,CKD Stage 4, HTN Objective Data Data 01/03/17 01/04/17 19:00 07:00 Intake Total 410 ml Balance 410 ml Intake Oral 410 ml # Voids 5 6 # Bowel Movements 0 Vital Signs Date Time Temp Pulse Resp B/P Pulse Ox O2 Delivery O2 Flow Rate FiO2 01/04/17 12:00 97.7 70 18 185/70 96 01/04/17 08:08 98.3 89 18 214/89 95 01/04/17 04:00 98.4 85 16 220/93 94 205/80 01/04/17 00:00 98.2 87 16 200/85 94 190/70 01/03/17 20:00 Room Air 01/03/17 20:00 81 01/03/17 20:00 98.7 86 18 210/81 94 01/03/17 18:00 97.8 77 20 178/70 93 -: 01/02/17 0920 01/03/17 1015 Physical Exam General Appearance: Well Developed, Well Nourished Neck Neck Exam: Neck Supple Pulmonary Resp Exam: Clear Bilaterally, Breath Sounds Equal Cardiology CV Exam: Regular, Normal Sinus Rhythm Gastrointestinal/Abdomen GI Exam: Soft, Non-Tender, Bowel Sounds Present Integumentary Skin Exam: Clear Extremeties Extremities Exam: No Edema Assessment/Plan Problem List: (1) CKD (chronic kidney disease) stage 4, GFR 15-29 ml/min Plan: Patient cr continue to improve HTN labile SBP higher but last one 138 after medications stay on current medications Hydralazine added (2) CHF (congestive heart failure) Plan: She has diastolic dysfunction due to hypertension (3) Diabetes mellitus Plan: Continue to monitor blood glucose (4) Anemia Plan: Moderate anemia due to CK D (5) Uncontrolled hypertension Plan: Add hydralazine 25 mg 3 times a day Problem Qualifiers (1) CHF (congestive heart failure): Xiao Landeros MD Jan 04, 2017 14:16
[2017-01-04] MEDS ORDERED: METOPROLOL TARTRATE 100 MG TAB PO SCH (21:00)
== END 2017-01-04 15:15 | disposition home or self-care (01) | DRG 291 ==
LOC: NEPE 08:35 → NEDA 10:38 → N04B 14:57
PROVIDERS: ADMIT Internal Medicine; ATTEND Internal Medicine
DX: I13.0 Hypertensive heart and chronic kidney disease with heart failure and stage 1 through stage 4 chronic kidney disease, or unspecified chronic kidney disease (principal); J96.01 Acute respiratory failure with hypoxia; I50.31 Acute diastolic (congestive) heart failure; N18.4 Chronic kidney disease, stage 4 (severe); E11.21 Type 2 diabetes mellitus with diabetic nephropathy; I73.9 Peripheral vascular disease, unspecified; E11.22 Type 2 diabetes mellitus with diabetic chronic kidney disease; E78.5 Hyperlipidemia, unspecified; I16.0 Hypertensive urgency; K21.9 Gastro-esophageal reflux disease without esophagitis; D63.1 Anemia in chronic kidney disease; H40.9 Unspecified glaucoma; H91.90 Unspecified hearing loss, unspecified ear; M19.90 Unspecified osteoarthritis, unspecified site; Z79.4 Long term (current) use of insulin; Z85.828 Personal history of other malignant neoplasm of skin
CPT/HCPCS: 71010; 76775; 78452; 80048; 80053; 82550; 82948; 83036; 83735; 83880; 84484; 85025; 85610; 85730; 93005; 93017; 93306; 96374; A9502; J1650; J1940; J2785

== ENCOUNTER 2017-01-17 19:27 | Emergency (ER) | payer MEDICARE, OTHER ==
[~2017-01-17] VITALS: Ht 165.1 cm; Wt 80.0 kg
[~2017-01-17 19:27] MED LIST changes: -1-ME1LIQ PO; +AMLO10TA2 PO; -ATOR20TA PO; +ATOR20TA15 PO; +Aspirin Chew CHEW; +CLON.1 PO; +ESSE250T; +FURO1TAB62 PO; -GLIP5 PO; +HYDR25TA35 PO; -LANTINJ SQ; +LANTUS2P SQ; -MAGN400 PO; +METO-338 PO; -METO50TA PO; -VITD400 PO
[2017-01-17 19:29] VITALS: BP 251/112; PULSE 80; RESP 16; TEMP 98; O2SAT 98
--- NOTE | 2017-01-17 19:52 | PD ---
HPI Chief Complaint: Diabetic Time Seen by Provider: 19:49 Travel History International Travel<30 days: No Contact w/Intl Traveler<30days: No Traveled to known affect area: No History of Present Illness HPI 81-year-old elderly female presents to the emergency department for evaluation of hyperglycemia. Patient states that her blood sugar before eating was 309. She states that she took 14 units of Lantus insulin and rechecked her blood sugar and it was 300. She states that her blood sugar normally does not run that high. She is concerned that she may have UTI, but denies any symptoms of dysuria, frequency, urgency. The patient denies any headache. No fevers. No neck pain or back pain. No chest pain or abdominal pain. No shortness of breath. No nausea, vomiting, diarrhea. She states she feels fine, but was concerned because her blood sugar was elevated. She does report history of diabetes type 2, hypertension, chronic kidney disease. PFSH Past Medical History Hx Anticoagulant Therapy: No Arthritis: Yes Cancer: Yes (SKIN) Cardiovascular Problems: Yes (HTN) High Cholesterol: Yes Chemotherapy: No Cerebrovascular Accident: No Diabetes: Yes (TYPE 2) Patient Takes Glucophage: No Diminished Hearing: Yes Endocrine: Yes Glaucoma: Yes Hepatitis: No Hiatal Hernia: No Hypertension: Yes Immune Disorder: No Implanted Vascular Access Dvce: No Medical other: No Musculoskeletal: Yes Neurologic: No Psychiatric: No Reproductive: No Respiratory: No Thyroid Disease: No Influenza Vaccination: Yes : 4 Para: 4 Past Surgical History Abdominal Surgery: Yes (ULCER REPAIR) Appendectomy: Yes Cardiac Surgery: No Ear Surgery: No Endocrine Surgery: No Eye Surgery: No Genitourinary Surgery: No Gynecologic Surgery: Yes (HYSTERECTOMY) Hysterectomy: Yes Neurologic Surgery: No Oral Surgery: No Pacemaker: No Thoracic Surgery: No Other Surgery: Yes (STENTS X 2 TO RIGHT LEG) Social History Alcohol Use: Yes (OCCASSIONALLY) Tobacco Use: No Substance Use: No Allergies-Medications (Allergen,Severity, Reaction): Coded Allergies: No Known Allergies (Verified , 01/17/17) Reported Meds & Prescriptions Reported Meds & Active Scripts Active [Aspirin Chew] 81 MG Chew 81 Mg CHEW DAILY 30 Days Lasix (Furosemide) 20 Mg Tab 20 Mg PO BID 30 Days Lopressor (Metoprolol Tartrate) 100 Mg Tab 100 Mg PO Q12HR 30 Days Hydralazine (Hydralazine HCl) 25 Mg Tab 25 Mg PO Q8HR 30 Days Catapres (Clonidine) 0.1 Mg Tab 0.2 Mg PO Q8HR 30 Days Reported Magnesium 250 Mg Tab Losartan-Hydrochlorothiazide 100-12.5 Mg Tab 1 Tab PO DAILY Allopurinol 100 Mg Tab 100 Mg PO DAILY Amlodipine (Amlodipine Besylate) 10 Mg Tab 10 Mg PO DAILY Atorvastatin (Atorvastatin Calcium) 20 Mg Tab 20 Mg PO HS Lantus Inj (Insulin Glargine) 1,000 Unit/10 Ml Vial 12 Units SQ HS Review of Systems Except as stated in HPI: all other systems reviewed are Neg Physical Exam Narrative GENERAL: Well-nourished, well-developed elderly female patient, afebrile. SKIN: Focused skin assessment warm/dry. HEAD: Normocephalic. Atraumatic. EYES: No scleral icterus. No injection or drainage. NECK: Supple, trachea midline. No JVD or lymphadenopathy. CARDIOVASCULAR: Regular rate and rhythm without murmurs, gallops, or rubs. RESPIRATORY: Breath sounds equal bilaterally. No accessory muscle use. Lungs sounds are clear to auscultation. GASTROINTESTINAL: Abdomen soft, non-tender, nondistended. MUSCULOSKELETAL: No cyanosis, or edema. BACK: Nontender without obvious deformity. No CVA tenderness. Data Data Last Documented VS Vital Signs Date Time Temp Pulse Resp B/P Pulse Ox O2 Delivery O2 Flow Rate FiO2 01/17/17 21:37 78 16 197/84 99 Room Air 01/17/17 19:29 98.0 Orders Electrocardiogram (01/17/17 ) Iv Access Insert/Monitor (01/17/17 19:46) Complete Blood Count With Diff (01/17/17 19:46) Comprehensive Metabolic Panel (01/17/17 19:46) Urinalysis - C+S If Indicated (01/17/17 19:46) Urine Culture (01/17/17 19:42) Ceftriaxone Inj (Rocephin Inj) (01/17/17 21:00) Labetalol Inj (Trandate Inj) (01/17/17 21:15) Labs Laboratory Tests Test 01/17/17 19:42 White Blood Count 13.7 TH/MM3 Red Blood Count 4.46 MIL/MM3 Hemoglobin 12.3 GM/DL Hematocrit 36.4 % Mean Corpuscular Volume 81.8 FL Mean Corpuscular Hemoglobin 27.7 PG Mean Corpuscular Hemoglobin 33.8 % Concent Red Cell Distribution Width 13.7 % Platelet Count 430 TH/MM3 Mean Platelet Volume 9.0 FL Neutrophils (%) (Auto) 75.8 % Lymphocytes (%) (Auto) 19.0 % Monocytes (%) (Auto) 3.9 % Eosinophils (%) (Auto) 0.8 % Basophils (%) (Auto) 0.5 % Neutrophils # (Auto) 10.4 TH/MM3 Lymphocytes # (Auto) 2.6 TH/MM3 Monocytes # (Auto) 0.5 TH/MM3 Eosinophils # (Auto) 0.1 TH/MM3 Basophils # (Auto) 0.1 TH/MM3 CBC Comment DIFF FINAL Differential Comment Urine Color YELLOW Urine Turbidity CLOUDY Urine pH 5.5 Urine Specific [place] 1.011 Urine Protein 100 mg/dL Urine Glucose (UA) 150 mg/dL Urine Ketones NEG mg/dL Urine Occult Blood TRACE Urine Nitrite NEG Urine Bilirubin NEG Urine Urobilinogen LESS THAN 2.0 MG/DL Urine Leukocyte Esterase LARGE Urine RBC 24 /hpf Urine WBC 130 /hpf Urine WBC Clumps MANY Urine Squamous Epithelial 20 /hpf Cells Urine Bacteria MOD /hpf Urine Hyaline Casts 5 /lpf Urine Mucus FEW /lpf Urine Yeast (Budding) MANY Microscopic Urinalysis Comment CULTURE INDICATED Sodium Level 132 MEQ/L Potassium Level 4.4 MEQ/L Chloride Level 96 MEQ/L Carbon Dioxide Level 25.1 MEQ/L Anion Gap 11 MEQ/L Blood Urea Nitrogen 59 MG/DL Creatinine 2.92 MG/DL Estimat Glomerular Filtration 15 ML/MIN Rate Random Glucose 310 MG/DL Calcium Level 9.7 MG/DL Total Bilirubin 0.4 MG/DL Aspartate Amino Transf 12 U/L (AST/SGOT) Alanine Aminotransferase 25 U/L (ALT/SGPT) Alkaline Phosphatase 193 U/L Total Protein 8.1 GM/DL Albumin 3.6 GM/DL [facility] Medical Decision Making Medical Screen Exam Complete: Yes Emergency Medical Condition: Yes Medical Record Reviewed: Yes Differential Diagnosis Hyperglycemia versus hypertension versus DKA Narrative Course 81-year-old female presents to the emergency department for evaluation of elevated blood glucose. Patient denies any associated complaints. Her blood pressure is elevated upon arrival. Patient states her blood pressure has been fine at home. This will be monitored. EKG, CBC, CMP, UA are ordered and pending. EKG shows sinus rhythm, heart rate 76, no acute ST changes. CBC shows leukocytosis 13.7. CMP shows BUN 59, creatinine 2.92, glucose 310. UA shows trace occult blood, large leukocyte esterase, 1:30 WBC, many wbc,. The patient is given Rocephin 1 g IV. Due to elevated blood pressure, patient is given labetalol 20 mg IV. The patient took long-acting insulin. I instructed to monitor her blood sugar follow-up with her primary care physician. She is to return for any acute worsening of symptoms. She'll be discharged prescription for Keflex for UTI. She verbalizes agreement and understanding. I discussed the case with my attending physician, Dr. Bishop, who agrees with plan and disposition. 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 Monitor blood sugar and blood pressure and keep a log. Follow up with your primary care physician on Thursday. Return to the emergency department for any acute worsening of symptoms. Med/Other Pt SpecificInfo: Prescription(s) given Scripts Cephalexin (Keflex)500 Mg [id number] Mg PO Q6H 7 Days Ref 0 Prov:Oralia Parks 01/17/17 Disposition: DISCHARGE HOME Condition: Stable Oralia Parks Jan 17, 2017 19:52
[2017-01-17 20:05] LABS: AUTOMATED NEUTROPHIL # 10.4 TH/MM3 (1.8-7.7); BASOPHIL # 0.1 TH/MM3 (0-0.2); BASOPHIL % 0.5 % (0.0-2.0); EOSINOPHIL # 0.1 TH/MM3 (0-0.4); EOSINOPHIL % 0.8 % (0.0-4.0); HEMATOCRIT 36.4 % (35.0-46.0); HEMO FLAGS DIFF FINAL; LYMPHOCYTE # 2.6 TH/MM3 (1.0-4.8); MEAN CELL VOLUME 81.8 FL (80.0-100.0); MEAN CORPUSCULAR HEMOGLOBIN 27.7 PG (27.0-34.0); MEAN CORPUSCULAR HGB CONC 33.8 % (32.0-36.0); MONO % 3.9 % (0.0-8.0); NEUT % 75.8 % (16.0-70.0); PLATELET COUNT 430 TH/MM3 (150-450); RED BLOOD COUNT 4.46 MIL/MM3 (4.00-5.30); RED CELL DISTRIBUTION WIDTH 13.7 % (11.6-17.2); WHITE BLOOD COUNT 13.7 TH/MM3 (4.0-11.0)
[2017-01-17 20:18] LABS: BACTERIA, URINE MOD /hpf; BLOOD, URINE TRACE (NEG); COMMENT (UR) CULTURE INDICATED; CULTURE IF INDICATED CULTURE INDICATED; GLUCOSE,URINE 150 mg/dL (NEG); HYALINE CAST, URINE 5 /lpf (RARE); KETONE, URINE NEG (NEG); MUCUS URINE FEW /lpf (OCC); NITRITE,URINE NEG (NEG); PH, URINE 5.5 (5.0-8.5); SQUAMOUS EPITHELIAL CELL URINE 20 /hpf (0-5); URINE COLOR YELLOW (YELLW/STRAW)
[2017-01-17 20:25] LABS: ANION GAP 11 MEQ/L (5-15); AST (GOT) 12 U/L (15-37); BICARBONATE 25.1 MEQ/L (21.0-32.0); BLOOD UREA NITROGEN 59 MG/DL (7-18); CHLORIDE 96 MEQ/L (98-107); GLOMERULAR FILTRATION RATE 15 ML/MIN (>89); POTASSIUM 4.4 MEQ/L (3.5-5.1); SODIUM (NA) 132 MEQ/L (136-145)
[2017-01-17 20:28] LABS: ALKALINE PHOSPHATASE 193 U/L (45-117); ALT (GPT) 25 U/L (10-53); TOTAL BILIRUBIN ADULT 0.4 MG/DL (0.2-1.0)
[2017-01-17] MEDS ORDERED: cefTRIAXone INJ 1,000 MG in SODIUM CHLORIDE 0.9% INJ 100 ML IV ONE (21:00)
[2017-01-17] MEDS ORDERED: LABETALOL HCL 100 MG/20 ML VIAL IV PUSH ONE (21:15)
[2017-01-17 21:20] VITALS: BP 217/129; PULSE 75; RESP 18; O2SAT 97
[2017-01-17 21:37] VITALS: BP 197/84; PULSE 78; RESP 16; O2SAT 99
[2017-01-17] MEDS ORDERED: CEPH-460 PO (22:09)
--- NOTE | 2017-01-18 22:39 | EKG ---
Date Performed: 01/17/2017 Time Performed: 19:56:04 PTAGE: 81 years EKG: Sinus rhythm MINIMAL VOLTAGE CRITERIA FOR LVH, CONSIDER NORMAL VARIANT NONSPECIFIC ST & T-WAVE ABNORMALITY BORDER LINE ECG PREVIOUS TRACING : 01/02/2017 21.43 Compared to prior tracing no significant change DOCTOR: Claudia Otero Interpretating Date/Time 01/18/2017 22:38:34
== END 2017-01-17 23:22 | disposition home or self-care (01) ==
LOC: NEPC 19:27
DX: N39.0 Urinary tract infection, site not specified (principal); E11.65 Type 2 diabetes mellitus with hyperglycemia; I15.1 Hypertension secondary to other renal disorders; N18.4 Chronic kidney disease, stage 4 (severe); E78.00 Pure hypercholesterolemia, unspecified; H40.9 Unspecified glaucoma
CPT/HCPCS: 80053; 81001; 85025; 87086; 93005; 96365; 96375; 99283; J0696